=== PATIENT | female | born 1965 | race Caucasian/White ===

== ENCOUNTER 2016-09-02 09:50 | Emergency (ER) | payer OTHER ==
[2016-09-02] MEDS ORDERED: NS 1,700 ML IV ONE (10:11)
[2016-09-02] MEDS ORDERED: IBUPROFEN 600 MG TAB PO ONE ×2 (10:23)
[2016-09-02 10:25] LABS: % IMMATURE GRANULYOCYTES 0.4 % (0.0-1.1); ABSOLUTE IMMATURE GRANULOCYTES 0.04 10^3/uL (0.00-0.10); ADD DIFF? NO; ADD MORPH? NO; ADD SCAN? NO; ATYPICAL LYMPHOCYTE FLAG 0 (0-99); FRAGMENT RBC FLAG 0 (0-99); HEMATOCRIT 40.7 % (38.0-47.0); HEMOGLOBIN 13.9 g/dL (12.6-16.3); LEFT SHIFT FLG 0 (0-99); LIPEMIA HEMOLYSIS FLAG 90 (0-99); MEAN CELL HEMOGLOBIN 31.5 pg (27.9-34.1); MEAN CELL HEMOGLOBIN CONCENTR. 34.2 g/dL (32.4-36.7); MEAN CELL VOLUME 92.3 fL (81.5-99.8); MEAN PLATELET VOLUME 9.8 fL (8.7-11.7); PLATELET CLUMPS FLAG 10 (0-99); PLATELET COUNT 159 10^3/uL (150-400); RED BLOOD CELL COUNT 4.41 10^6/uL (4.18-5.33); RED CELL DISTRIBUTION WIDTH 12.2 % (11.5-15.2)
[2016-09-02] MEDS ORDERED: ACETAMINOPHEN 500 MG TAB PO ONE (10:26)
[2016-09-02 10:35] LABS: APTT 25.7 SEC (23.0-38.0); INR 1.09 (0.83-1.16)
[2016-09-02 10:40] LABS: ANION GAP 11 mEq/L (8-16); BILIRUBIN,TOTAL 0.9 mg/dL (0.1-1.4); CALCIUM 9.4 mg/dL (8.5-10.4); CARBON DIOXIDE 22 mEq/l (22-31); CHLORIDE 107 mEq/L (97-110); CREATININE 0.8 mg/dL (0.6-1.0); GLOMERULAR FILTRATION RATE > 60; GLUCOSE 90 mg/dL (70-100); POTASSIUM 4.1 mEq/L (3.5-5.2); SODIUM 140 mEq/L (134-144)
[2016-09-02] MEDS ORDERED: RABIES VACC, HUMAN DIPLOID/PF 2.5 UNIT VIAL (RABAVERT) IM ONE (11:16)
[2016-09-02] MEDS ORDERED: RABIES IMMUNE GLOBULIN 300 UNIT/2 ML VIAL IM ONE (11:16)
--- NOTE | 2016-09-02 11:53 | EDPHY ---
H & P Stated Complaint: fever , aches, sore throat, cough since yesterday Time Seen by Provider: 09/02/16 10:06 HPI/ROS: Chief complaint: Cold symptoms, bat exposure History of present illness: This is a 51-year-old female who presents to the emergency department for cold symptoms. Patient reports the onset of symptoms over the last few days. She reports tactile fevers, sore throat, cough, chest congestion and body aches. Symptoms have been persistent. She denies precipitating factors. Denies alleviating factors. She is concerned this may be related to a recent bat exposure. Approximately 1 week ago she began a remodel on her house. This includes opening up the house into the attic space. Apparently multiple bats were released into the house and have been moving around the house. The patient hired a bat expert to get rid of them, the expert estimated between 20 and 30 bats in the house. The patient denies any known scratches or bites. She denies other associated signs or symptoms. Review of systems: A 10 point review of systems was obtained and other than described above was negative - Personal History LMP (Females 10-55): 15-21 Days Ago Current Tetanus/Diphtheria Vaccine: Unsure Current Tetanus Diphtheria and Acellular Pertussis (TDAP): Unsure - Medical/Surgical History Hx Asthma: No Hx Chronic Respiratory Disease: No Hx Diabetes: No Hx Cardiac Disease: No Hx Renal Disease: No Hx Cirrhosis: No Hx Alcoholism: No Hx HIV/AIDS: No Other PMH: denies - Social History Smoking Status: Never smoked - Physical Exam Exam: General Appearance: Alert, nontoxic. Eyes: Pupils equal and round no pallor or injection. ENT, Mouth: Tympanic membranes, external auditory canals, external ears and surrounding soft tissue including over the mastoids are unremarkable. Nasopharynx is not injected. There is no rhinorrhea. Oropharynx is injected. There is no edema. There is mild exudate. There is no asymmetry. The uvula is midline. No elevation of the tongue. There is no hoarseness, no drooling, no trismus, no stridor. Respiratory: There are no retractions, lungs are clear to auscultation. Cardiovascular: Regular rate and rhythm. Gastrointestinal: Abdomen is soft and nontender, no masses, bowel sounds normal. Neurological: Alert and oriented x4. Cranial nerves 2-12 grossly intact. Strength and sensation intact and symmetrical. No meningismus. Skin: Warm and dry, no rashes. Musculoskeletal: Neck is supple nontender. Extremities are symmetrical, full range of motion. Psychiatric: Patient is oriented X 3, there is no agitation. Constitutional: Initial Vital Signs Temperature (C) 39.3 C H 09/02/16 09:59 Heart Rate 99 09/02/16 09:59 Respiratory Rate 16 09/02/16 09:59 Blood Pressure 99/75 L 09/02/16 09:59 O2 Sat (%) 98 09/02/16 09:59 O2 Delivery Mode Room Air Allergies/Adverse Reactions: diphenhydramine [From Benadryl] Allergy (Verified 09/02/16 10:02) Sulfa (Sulfonamide Antibiotics) Allergy (Verified 09/02/16 10:02) Home Medications: Medication Instructions Recorded Synthroid 09/02/16 Medical Decision Making - Diagnostics Imaging Results: Imaging Impressions Chest X-Ray 09/02/16 10:12 Impression: Mild peribronchial thickening suggesting airways disease/bronchitis. ED Course/Re-evaluation: Patient is discussed with my secondary supervising physician Dr. Luisito Quan. Patient presents to the emergency department for cold symptoms and a bat exposure. She is concerned they may be related. On presentation she is nontoxic. She is febrile. She does trigger SIRS criteria. Baseline blood studies are obtained, she does not meet sepsis criteria. She is IV hydrated. Her fever is treated with ibuprofen and Tylenol. Physical exam does reveal some erythema with exudate in the throat and chest x-ray consistent with bronchitis. There is no meningismus. Given her recent Bat exposure Dr. Amalia Urbano is consulted with Infectious Disease, she does recommend post exposure prophylaxis and also getting viral respiratory testing on patient. On re-evaluation patient is feeling better. She is comfortable being discharged home. She is asked to follow up with her primary care doctor on Sunday for recheck. She understands she will need rabies vaccination on day 3, 7 and 14. She knows she can return here or see infectious disease for these. Strict return precautions are given. Patient voiced understanding and agreement with plan. Differential Diagnosis: Included but not limited to pneumonia, bronchitis, upper respiratory tract infections, viral syndromes, unlikely meningitis - Data Points Laboratory Results: Laboratory Results 09/02/16 10:10 09/02/16 10:11 09/02/16 09/02/16 09/02/16 Unknown 10:11 10:10 WBC RBC Hgb Hct MCV MCH MCHC RDW Plt Count MPV Neut % (Auto) Lymph % (Auto) Rogers % (Auto) Eos % (Auto) Baso % (Auto) Nucleat RBC Rel Count Absolute Neuts (auto) Absolute Lymphs (auto) Absolute Monos (auto) Absolute Eos (auto) Absolute Basos (auto) Absolute Nucleated RBC Immature Gran % Immature Gran # PT INR APTT VBG Lactic Acid Sodium 140 mEq/L mEq/L (134-144) Potassium 4.1 mEq/L mEq/L (3.5-5.2) Chloride 107 mEq/L mEq/L (97-110) Carbon Dioxide 22 mEq/l mEq/l (22-31) Anion Gap 11 mEq/L mEq/L (8-16) BUN 12 mg/dL mg/dL (7-23) Creatinine 0.8 mg/dL mg/dL (0.6-1.0) Estimated GFR > 60 Glucose 90 mg/dL mg/dL (70-100) Calcium 9.4 mg/dL mg/dL (8.5-10.4) Total Bilirubin 0.9 mg/dL mg/dL (0.1-1.4) Group A Strep Screen NEGATIVE (NEGATIVE) Group A Strep DNA NEGATIVE (NEGATIVE) 09/02/16 09/02/16 09/02/16 10:10 10:10 10:10 WBC 9.49 10^3/uL 10^3/uL (3.80-9.50) RBC 4.41 10^6/uL 10^6/uL (4.18-5.33) Hgb 13.9 g/dL g/dL (12.6-16.3) Hct 40.7 % % (38.0-47.0) MCV 92.3 fL fL (81.5-99.8) MCH 31.5 pg pg (27.9-34.1) MCHC 34.2 g/dL g/dL (32.4-36.7) RDW 12.2 % % (11.5-15.2) Plt Count 159 10^3/uL 10^3/uL (150-400) MPV 9.8 fL fL (8.7-11.7) Neut % (Auto) 91.5 % H % (39.3-74.2) Lymph % (Auto) 3.7 % L % (15.0-45.0) Rogers % (Auto) 4.1 % L % (4.5-13.0) Eos % (Auto) 0.0 % L % (0.6-7.6) Baso % (Auto) 0.3 % % (0.3-1.7) Nucleat RBC Rel Count 0.0 % % (0.0-0.2) Absolute Neuts (auto) 8.68 10^3/uL H 10^3/uL (1.70-6.50) Absolute Lymphs (auto) 0.35 10^3/uL L 10^3/uL (1.00-3.00) Absolute Monos (auto) 0.39 10^3/uL 10^3/uL (0.30-0.80) Absolute Eos (auto) 0.00 10^3/uL L 10^3/uL (0.03-0.40) Absolute Basos (auto) 0.03 10^3/uL 10^3/uL (0.02-0.10) Absolute Nucleated RBC 0.00 10^3/uL 10^3/uL (0-0.01) Immature Gran % 0.4 % % (0.0-1.1) Immature Gran # 0.04 10^3/uL 10^3/uL (0.00-0.10) PT 14.0 SEC SEC (12.0-15.0) INR 1.09 (0.83-1.16) APTT 25.7 SEC SEC (23.0-38.0) VBG Lactic Acid 0.8 mmol/L mmol/L (0.7-2.1) Sodium Potassium Chloride Carbon Dioxide Anion Gap BUN Creatinine Estimated GFR Glucose Calcium Total Bilirubin Group A Strep Screen Group A Strep DNA Microbiology Results: MICROBIOLOGY 09/02/16 13:15 Nasal, Sinus - Swab Respiratory Panel (PCR) - Final No Organism Detected Medications Given: Discontinued Medications Acetaminophen (Tylenol) 1,000 mg PO EDNOW ONE Stop: 09/02/16 10:27 Last Admin: 09/02/16 10:29 Dose: 1,000 mg Sodium Chloride (Ns) 1,700 mls @ 3,400 mls/hr 30 ml/kg infuse over 30 min ( 1700 ml) IV EDNOW ONE PRN Reason: Protocol Stop: 09/02/16 10:40 Last Admin: 09/02/16 10:30 Dose: 1,700 mls Ibuprofen (Motrin) 600 mg PO EDNOW ONE Stop: 09/02/16 10:24 Last Admin: 09/02/16 10:29 Dose: 600 mg Rabies Immune Globulin (Imogam Rabies Ht 2ml) 1,120 unit IM .ONCE ONE Stop: 09/02/16 11:17 Last Admin: 09/02/16 12:29 Dose: 1,120 unit Rabies Vaccine Human Diploid Cell (Rabavert) 2.5 unit IM .ONCE ONE Stop: 09/02/16 11:17 Last Admin: 09/02/16 12:20 Dose: 2.5 unit Departure - Departure Disposition: Home, Routine, Self-Care Clinical Impression: Bronchitis, Rabies exposure Instructions: Rabies Vaccine (By injection), Rabies Immune Globulin (By injection), Acute Bronchitis (ED) Additional Instructions: Follow-up with your primary care doctor on Sunday for recheck of your symptoms Please call and arrange a follow-up for recheck with Infectious Disease for continued rabies vaccination You were started on the rabies vaccination series today. Today is day 0. You will need 3 more vaccinations on day 3, 7 and 14 - September 05 and and September 16. You received rabies immunoglobulin today. You will not need another dose. If symptoms worsen or new symptoms develop return to the emergency room for recheck Referrals: Pipo Javier MD [Primary Care Provider] - As per Instructions Amalia Urbano MD [Medical Doctor] - As per Instructions
[2016-09-02 14:19] VITALS: BP 98/58; PULSE 69; RESP 16; TEMP 98.6; O2SAT 97
== END 2016-09-02 14:20 | disposition home or self-care (01) ==
DX: J40 Bronchitis, not specified as acute or chronic (principal); E86.9 Volume depletion, unspecified; Z20.3 Contact with and (suspected) exposure to rabies; Z23 Encounter for immunization

== ENCOUNTER 2016-11-12 19:44 | Emergency (ER) | payer OTHER ==
--- NOTE | 2016-11-12 20:23 | EDPHY ---
H & P Stated Complaint: surgery 11/06/16- no BM since 11/06 Source: Patient, Family Exam Limitations: No limitations - Personal History LMP (Females 10-55): IUD In Place Current Tetanus Diphtheria and Acellular Pertussis (TDAP): Yes - Medical/Surgical History Hx Asthma: No Hx Chronic Respiratory Disease: No Hx Diabetes: No Hx Cardiac Disease: No Hx Renal Disease: No Hx Cirrhosis: No Hx Alcoholism: No Hx HIV/AIDS: No Hx Splenectomy or Spleen Trauma: No Other PMH: denies - Social History Smoking Status: Never smoked Time Seen by Provider: 11/12/16 20:19 HPI/ROS: HPI: The 51-year-old female presents with Chief Complaint: Constipation Location: Abdomen Quality: Constipation Duration: 6 days Signs and Symptoms: No fever, no abdominal pain, no dysuria, no back pain, no shortness of breath, + abdominal bloating, + passing flatus, + nausea, no vomiting, no rectal bleeding Timing: Gradually worsening Severity: Moderate Context: Patient complains of no bowel movement since surgery on her right labrum on 11/06/2016. She had a small bowel movement the morning of surgery. Was NPO after midnight night before. She has been taking opiate pain medications several times per day to control her pain and has limited mobility since surgery on the right lower extremity. She is passing flashes. Eating normally. No episodes of emesis. She does have a history of hemorrhoids; denies them bleeding or being painful. She has been taking Colace daily and tried at Dulcolax suppository yesterday without ability to have bowel movement. She a has a history of laparoscopic bilateral tubal ligation. Modifying Factors: Colace p.o. and suppository no relief Comment: ROS: Constitutional: No fever, no chills, no weight loss Eyes: No blurred vision Respiratory: No shortness of breath, no cough Cardiovascular: No chest pain Gastrointestinal: No nausea, no vomiting no diarrhea Genitourinary: No dysuria Extremities: No myalgias Neurologic: No weakness, no numbness Skin: No rashes Hematologic: No bruising, no bleeding MEDICAL/SURGICAL/SOCIAL HISTORY: Medical history: Generally healthy. Does not take any regular medications. Surgical history: Right labral surgery Social history: . CONSTITUTIONAL: Extremely well-appearing adult white female, awake and alert, no obvious distress HEENT: Atraumatic and normocephalic, PERRL, EOMI. Tympanic membranes clear. Oropharynx clear, no exudate and moist pink mucosa. Airway patent. No lymphadenopathy. No meningismus. Cardiovascular: Normal S1/S2, regular rate, regular rhythm, without murmur rub or gallop. PULMONARY/CHEST: Symmetrical and nontender. Clear to auscultation bilaterally. Good air movement. No accessory muscle usage. ABDOMEN: Soft, mild distention, nontender, no rebound, no guarding, no peritoneal signs, no masses or organomegaly. No CVAT. Hyperactive bowel sounds heard all 4 quadrants. EXTREMITIES: 2/2 pulses, no deformities, no clubbing, no cyanosis or edema. NEUROLOGICAL: no focal neuro deficits. GCS 15. SKIN: Warm and dry, no erythema. no rash. Good capillary refill. (Riddhi Cortes) Constitutional: Initial Vital Signs Temperature (C) 37.4 C 11/12/16 19:52 Heart Rate 84 11/12/16 19:52 Respiratory Rate 20 11/12/16 19:52 Blood Pressure 111/73 11/12/16 19:52 O2 Sat (%) 97 11/12/16 19:52 O2 Delivery Mode Room Air Allergies/Adverse Reactions: diphenhydramine [From Benadryl] Allergy (Verified 11/12/16 19:52) Sulfa (Sulfonamide Antibiotics) Allergy (Verified 11/12/16 19:52) Home Medications: Medication Instructions Recorded Synthroid 09/02/16 Medical Decision Making - Diagnostics Imaging Results: Imaging Impressions Abdomen X-Ray 11/12/16 20:12 Impression: 1. Nonspecific bowel gas pattern. 2. Small left pleural effusion. ED Course/Re-evaluation: Acute abdominal series ordered Abdomen is benign with nonfocal exam. X-ray my read shows moderate stool burden; no signs of obstruction/free air; small pleural effusion noted-no hypoxia/respiratory distress/fever Patient given fleets enema and 100 mL of magnesium citrate. (Riddhi Cortes) The patient was evaluated and managed by the physician assistant manager airside operations. I have reviewed this chart and I agree with the findings and plan of care as documented , as indicated by my signature. I am the secondary supervising physician. ( Maylin Bryson) Differential Diagnosis: Differential diagnosis includes but is not limited to constipation, obstipation , small-bowel obstruction, perforated colon. (Riddhi Cortes) - Data Points Medications Given: Discontinued Medications Magnesium Citrate (Magnesium Citrate) 100 ml PO ONCE ONE Stop: 11/12/16 20:56 Last Admin: 11/12/16 21:27 Dose: 1 btl Departure - Departure Disposition: Home, Routine, Self-Care Clinical Impression: Constipation due to pain medication therapy, History of surgery Condition: Good Instructions: Constipation (ED) Additional Instructions: Your x-rays today show no obstruction but do show large amount of stool within the colon. Please drink 3 Liters of fluids daily and eat a high-fiber diet. Take MiraLax daily until having normal bowel movements. If you do not have a bowel movement in the next 2-3 days, please follow-up with her primary care provider. Referrals: Pipo Javier MD [Primary Care Provider] - As per Instructions
[2016-11-12] MEDS ORDERED: MAGNESIUM CITRATE 300 ML BOTTLE PO ONE (20:55)
[2016-11-12 21:48] VITALS: BP 118/74; PULSE 80; RESP 18; TEMP 98.2; O2SAT 96
== END 2016-11-12 21:48 | disposition home or self-care (01) ==
DX: K59.00 Constipation, unspecified (principal); T40.2X1A Poisoning by other opioids, accidental (unintentional), initial encounter; Z98.890 Other specified postprocedural states

== ENCOUNTER → 2017-01-22 | Outpatient (CLI) | payer OTHER | LOC: FIMAGING 08:14 | PROVIDERS: ATTEND Obstetrics & Gynecology Gynecology | DX: Z12.31 Encounter for screening mammogram for malignant neoplasm of breast (principal) | CPT/HCPCS: G0202 ==

== ENCOUNTER → 2018-03-05 | Outpatient (CLI) | payer OTHER | LOC: FIMAGING 08:26 | PROVIDERS: ATTEND Physician Assistant Medical | DX: Z12.31 Encounter for screening mammogram for malignant neoplasm of breast (principal); Z13.820 Encounter for screening for osteoporosis; N95.9 Unspecified menopausal and perimenopausal disorder; E07.9 Disorder of thyroid, unspecified; Z80.3 Family history of malignant neoplasm of breast ==

== ENCOUNTER 2018-03-12 09:18 | Emergency (ER) | payer OTHER ==
--- NOTE | 2018-03-12 09:58 | EDPHY ---
General Time Seen by Provider: 03/12/18 09:51 Narrative: CLINICAL IMPRESSION: Right hip pain, right knee abrasion ASSESSMENT/PLAN: Patient is a 53-year-old female with a significant medical history of hypothyroidism and remote right pelvic fracture as well as right labrum repair who presents with complaint of right hip pain after sustaining a slip and fall on the ice. Patient is nontoxic-appearing, she is in no acute distress on arrival. Hip x-rays reveal no acute bony abnormality. Patient continued to have pain out of proportion, proceeded with CT for concern of pubic rami or acetabular fracture. CT pelvis with no evidence of acute abnormality. There was no evidence of acute fracture, dislocation, compartment syndrome or neurovascular compromise. Her history and physical examination is most consistent with right hip pain and right knee abrasion. She declined any need for pain medication in the emergency department, she will otherwise continue Tylenol and ibuprofen at home. On repeat examination, the patient is very reassured by her findings. She was able to ambulate independently with a slight limp. She is well established with PCP and will call to schedule follow-up, she is also well established with her orthopedic surgeon. Return precautions discussed-patient to return to the emergency Department for significantly worsening or uncontrolled pain, significant swelling, numbness or tingling of the extremity, paleness or coolness of her digits, fever or for any other concerning symptom. The patient verbalizes understanding and she is in agreement with this plan. DIFFERENTIAL DX: Fracture, dislocation, contusion, strain ED COURSE: 1020: X-ray reviewed with Dr. Minaya, will proceed with CT 1051: Radiologist called to inform me no acute findings on CT pelvis. Specifically no evidence of pubic ramus fracture or acetabular fracture. CHIEF COMPLAINT: Right hip pain HPI: Patient is a 53-year-old female with a significant medical history of hypothyroidism and remote right pelvic fracture as well as right labrum repair who presents with complaint of right hip pain after sustaining a slip and fall on the ice. Patient reports just prior to arrival at approximately 8:00 a.m. She was walking out to her truck when she accidentally slipped on the ice landing directly onto her right hip. She did experience pain at the site, has been able to move her hip in all directions however experiences pain in the buttocks with ambulation. She had a pair of crutches at home and has been using than secondary to pain. Patient did not hit her head, there was no loss of consciousness. She denies any abdominal pain, thigh, knee, ankle or foot pain. She also denies any neck or back pain. PAST MEDICAL HISTORY: Hypothyroidism, seasonal allergies, right pelvic fracture Pertinent Past Surgical History: Right hip labral repair Family History: Noncontributory Social History: Denies illicit drug use or smoking ROS: A full 10 point review of systems was negative except for those mentioned in HPI. PHYSICAL EXAM: General Appearance: Well-appearing, no acute distress HEENT: Normocephalic, atraumatic. External ears are normal, TMs normal without evidence of hemotympanum. Oropharynx clear is no erythema or exudates, no tonsillar hypertrophy or asymmetry. Dentition without abnormality. Eyes: PERRLA, no acute vision change, nystagmus, swelling, discharge, pain or photosensitivity. Conjunctiva pink, no pallor or injection. Neck: Supple, nontender, no lymphadenopathy, no midline pain, FROM, no meningismus. Back: No step-off, palpable bony abnormality, edema, erythema or ecchymosis of the cervical, thoracic or lumbar spines. Patient has no tenderness to palpation of the thoracic or lumbar spines. Full range of motion of all spines 5/5 and equal strength of the UEs and LEs bilaterally including shoulder shrug. Pulses: 2+ and equal radial, DP and PT pulses bilaterally. Sensation intact and symmetric to light touch from face, UEs and LEs bilaterally. Pelvis is stable, I am unable to elicit any tenderness to palpation on the lateral hip. There is a small abrasion inferior to the greater trochanter with associated tenderness to palpation. She has full active range of motion of the right hip. Right knee with small abrasion on the lateral aspect, nontender palpation. There is no anterior posterior laxity. There is no patellar tenderness to palpation. Respiratory: There are no retractions, lungs are clear to auscultation. Cardiac: Regular rate and rhythm, no murmurs or gallops. Gastrointestinal: Abdomen is soft, nontender, bowel sounds normal, no masses/ hernia, no rigidity, guarding or focal peritoneal findings. Skin: Warm, dry, no rashes, no nodules on palpation. MEDICAL DECISION MAKING: Patient was seen independently. Secondary supervising physician at time of evaluation was Dr. Minaya, he did not personally evaluate this patient however case, results and plan of care were discussed with him. Diagnosis: Right hip pain. New, requires workup Summary: See Assessment and Plan for summary of ED visit Clinical lab tests: Not applicable. Independent visualization of images, tracing, or specimens: Yes. Decision to obtain medical records or history from someone other than the patient: No Review / Summarize previous medical records: No Discussed patient with another provider: Yes, Dr. Minaya Patient Progress: Stable, discharged. - Diagnostics Imaging Results: Imaging Impressions Hip X-Ray 03/12/18 09:44 Impression: Negative. No acute fracture. Pelvis CT 03/12/18 10:18 IMPRESSION: No evidence of acute, displaced fracture. With persistent pain, MRI is recommended for further evaluation of nondisplaced fracture. Maida Malik was notified of these findings by telephone at 10:45 AM on 03/12/2018 - History Smoking Status: Never smoked - Objective Vital Signs: Initial Vital Signs Temperature (C) 36.9 C 03/12/18 09:23 Heart Rate 86 03/12/18 09:23 Respiratory Rate 16 03/12/18 09:23 Blood Pressure 104/75 03/12/18 09:23 O2 Sat (%) 95 03/12/18 09:23 O2 Delivery Mode Room Air Allergies/Adverse Reactions: diphenhydramine [From Benadryl] Allergy (Verified 03/12/18 09:22) Sulfa (Sulfonamide Antibiotics) Allergy (Verified 03/12/18 09:22) Home Medications: Medication Instructions Recorded Synthroid 09/02/16 Departure - Departure Disposition: Home, Routine, Self-Care Clinical Impression: Acute right hip pain Condition: Good Instructions: Hip Pain (ED) Additional Instructions: DISCHARGE INSTRUCTIONS FROM YOUR DOCTOR Thank you for visiting our emergency department today. Please keep in mind that discharge from the emergency department does not mean that there is nothing wrong - it simply means that we have not identified an emergency condition that requires further evaluation or treatment in the hospital. You should always plan to follow up with primary care for re-evaluation of your condition in the next 2-3 days. Your x-ray and CT did not reveal evidence of acute fracture today. Continue to weightbear as tolerated, continue to use her crutches as needed. If you have been referred to a specialist, please call as soon as possible ( today or tomorrow) to schedule your follow up appointment at the appropriate time; you have been provided an orthopedic referral however if you are still in contact with yours please call to schedule appointment for follow-up. For pain control: You may take Tylenol, I recommend 500-1000 mg every 6-8 hours as needed. Take with food and a full glass of water. Stop taking if this is upsetting her stomach. Do not exceed 4000 mg in a 24 hr period. You may also take ibuprofen, recommend 400 mg every 6 hr. Take with food and a full glass of water. Stop taking if this upsets her stomach. Do not exceed 2400 mg in a 24 hr period. People present with illnesses and injuries in different ways, and it is always possible that we have missed something. You may always return for re-evaluation if symptoms worsen or if they are not improving or if you develop new/different symptoms. Again, thank you for choosing our emergency department. We hope that you feel better. Referrals: Zachary Little MD [Medical Doctor] - Follow Up Only If Needed Pipo Javier MD [Primary Care Provider] - 2-3 days, call for appt.
[2018-03-12 11:25] VITALS: BP 102/71
== END 2018-03-12 11:22 | disposition home or self-care (01) ==
DX: M25.551 Pain in right hip (principal); S80.211A Abrasion, right knee, initial encounter; W00.0XXA Fall on same level due to ice and snow, initial encounter; Y93.01 Activity, walking, marching and hiking; Y92.9 Unspecified place or not applicable; Y99.9 Unspecified external cause status